=== PATIENT | female | born 1955 | race Caucasian/White ===

== ENCOUNTER 2016-10-26 10:00 | Day surgery (SDC) | payer OTHER ==
[~2016-10-26] VITALS: Ht 160 cm; Wt 67.0 kg
[~2016-10-26 10:00] MED LIST: 0.9% Sodium Chloride 1,000 ML IV SCH; MULT-666 PO; SELE200T11 PO; Sodium Chloride LOK Flush 10 mL Syringe IV PRN; fentaNYL-PF 50 mCg/mL 2 mL Inj IVPUSH PRN
[2016-10-26 11:10] VITALS: BP 130/71; PULSE 70; RESP 16; O2SAT 98
[2016-10-26 12:11] VITALS: BP 127/64; PULSE 83; RESP 16; O2SAT 97
--- NOTE | 2016-10-26 12:12 | PCM.ENDCOL ---
Colonoscopy Date of Service: Oct 26, 2016 Physician Juan C Gregory MD Pre Procedure Diagnosis: Screening blood in the stools Post Procedure Dx & Findings: Hemorrhoids Procedure Colonoscopy PROCEDURE IN DETAIL: Prep adequate Withdrawal time 21 minutes After unremarkable rectal examination the Olympus video colonoscope was inserted patient's anal canal and was advanced to cecum. Landmarks were identified including the ileocecal valve and appendiceal orifice. Scope was withdrawn systematically. Visualized colonic mucosa showed healthy shiny mucosa with normal healthy-appearing vasculature. In the rectum retroflexion was done which showed hemorrhoids. Anal canal was inspected carefully on the way out and hemorrhoids noted. Impression Hemorrhoids Recommendation Repeat colonoscopy in 10 years if there is no family or personal history of colon cancer or polyp. Otherwise repeat in 5 years. Presedation Assessment Risks and Benefits Informed consent was obtained from the patient after all risks and benefits including but not limited to drug reaction, infection, pain, bleeding, perforation, as well as alternatives were discussed. Patient monitoring Continuous pulse oximetry, cardiac monitoring, blood pressure monitoring, IV access, and oxygen at 2L per nasal cannula. Periprocedural Fentanyl: Fentanyl 150mcg Incrementally Midazolam: Midazolam 9mg Incrementally Complications There were no periprocedural complications identified. Post Procedure Plan Post Procedure Recommendations 1. Restrict activities today. 2. Resume normal activities in the morning. 3. Resume medications. 4. Patient informed of normal post procedure side effects as bloating, drowsiness, blood streaking in the stool. 5. average risk CRCS. If colon polyps come back as: -Hyperplastic- can repeat colonoscopy in 10 years -Tubular adenoma- repeat colonoscopy in 5 years -Tubulovillous/villous adenoma- repeat colonoscopy in 3 years -If any dysplasia- return to clinic as soon as possible 6. Please don't hesitate to call me with any questions. Juan C Gregory MD Oct 26, 2016 12:12
[2016-10-26 12:26] VITALS: BP 99/61; PULSE 84; RESP 14; O2SAT 97
== END 2016-10-26 23:59 | disposition home or self-care (01) ==
LOC: END 10:00
PROVIDERS: ATTEND Internal Medicine
DX: Z12.11 Encounter for screening for malignant neoplasm of colon (principal); K64.8 Other hemorrhoids; Z86.010 Personal history of colon polyps; K59.00 Constipation, unspecified
CPT/HCPCS: 99153; G0105; G0500; J7030

== ENCOUNTER 2016-11-21 05:39 | Inpatient (IN) | payer OTHER ==
[~2016-11-21] VITALS: Ht 160 cm; Wt 70.7 kg
[2016-11-21] VITALS (14 sets, daily range): BP systolic 102–139; BP diastolic 57–73; PULSE 82–98; RESP 13–18; O2SAT 94–99
[~2016-11-21 05:39] MED LIST changes: -0.9% Sodium Chloride 1,000 ML IV SCH; -Sodium Chloride LOK Flush 10 mL Syringe IV PRN; -fentaNYL-PF 50 mCg/mL 2 mL Inj IVPUSH PRN
[2016-11-21] MEDS: Lactated Ringer's 1,000 ML IV SCH ×2 (05:44→07:30)
[2016-11-21] MEDS ORDERED: [UNRECOGNIZED DRUG - OTHER] PO (05:55)
[2016-11-21] MEDS ORDERED: [UNRECOGNIZED DRUG - OTHER] PO (05:55)
[2016-11-21] MEDS ORDERED: ASPI325T32 PO (05:55)
[2016-11-21] MEDS ORDERED: CeFAZolin Inj 2 gm / 50mL D5W IV ONE (05:57)
[2016-11-21 06:24] LABS: BASOPHILS % (AUTO) 0.3 % (0-3); EOSINOPHILS % (AUTO) 3.2 % (0-5); MONOCYTES % (AUTO) 11.4 % (4-12); Mean Corpuscular Hemoglobin 26.4 pg (27.0-35.0); Mean Corpuscular Volume 78.9 fL (81-100); NEUTROPHILS % (AUTO) 45.5 % (40-74); Platelet Count 249 bil/L (150-400)
--- NOTE | 2016-11-21 07:18 | PCM.HPANE ---
Patient Data Surgeon Admitting Provider: Attending Provider:Sera Garcia MD Primary Care Physician:Dank Arteaga Other Provider:Shirley Stark Anesthesia Reason for Visit Pelvic Organ Prolapse Ht/WT & BMI Height (Feet): 5 Height (Inches): 3.00 Weight (Kilograms): 70.7 Body Mass Index 27.00 Allergies Coded Allergies: No Known Allergies (Verified Allergy, Severe, 10/26/16) Past Anesthesia History Anesthesia History: Denies:: Abnormal Airway, Anesthesia Reactions, Difficult Intubation, Fam Anesthesia Reaction, Fam Malignant Hypertherm, Malignant Hyperthermia Diabetes History Hx Diabetes?: No MRSA MRSA: No Medications Hypertension Medication: No Home Meds Incl Beta Steph: No Reported Medications [breathe extract] No Conflict Check Po Daily 11/21/16 [phytob-l 4x] No Conflict Check Po Daily 11/21/16 Aspirin 325 Mg Nuwnxt380 Mg PO PRN For Pain #1 BOTTLE 11/21/16 Selenomethionine (Selenium)200 Mcg Dophat016 Mcg PO DAILY 10/25/16 Multivitamin (Once Daily)1 Each Tablet1 Each PO DAILY 10/25/16 History History of ENT Problems?: Yes (see below) HEENT History: Positive for:: Hearing Problem (no hearing aides) Denies:: Abnormal Airway Cataracts Difficult Intubation Dysphagia Glaucoma Sinus Problem TMJ Denture Type: None Teeth Condition: Within Normal Limits Hx of Heart Problems?: No Cardiovascular History: Denies:: AICD Abdominal Aortic Aneurism Atrial Fibrillation Coronary Artery Disease Edema Heart Murmur Hypertension Irregular Heartbeat Pacemaker Valvular Heart Disease Hx of Respiratory Problem?: Yes Respiratory History: Positive for:: Cough (current; dry. Non-productive; no SOB; no wheezing) Pneumonia (remote hx ) Denies:: Asthma COPD Emphysema Oxygen Administration Tuberculosis (pos skin reaction due to vaccination in [place]) Use of C-PAP Machine Use of Inhalers / NEBS Hx Neurologic Problems?: No Neurological History: Denies:: CVA Headaches Multiple Sclerosis Parkinson's Disease Seizures TIA (possible 30 years ago- felt lump in head when angry, never dx) Hx of GI Problems?: No Hx of Problems?: Yes Genitourinary History: Denies:: Kidney Stones Urinary Tract Infection (past hx of - not current ) HX of Peritoneal Dialysis: No Female Hx: Denies:: Currently (post menopausal) Problems with Breasts? Skin History: Denies:: History Skin Disorders? Pressure Ulcers Hx Musculoskeletal Problems?: No Musculoskeletal History: Denies:: Fibromyalgia Joint Replacement Musculoskeletal Trauma Hx of Psycho/Social Problems?: No Psycho Social History: Denies:: Anxiety (situational never sought treatment) Hx Depression Hx Surgeries?: Yes (OVARY REMOVED, TONSILS) Hx Any Other Health Problems?: Yes Other History: Denies:: Cancer Thyroid Disease (hyperactive 6 mos ago, no meds now) History Blood Transfusions: Positive for:: Accept Blood Products? Blood Transfusions (after 1st child 40 years ago) Denies:: Blood Transfuse Reaction Hx Diabetes: No Hx Alcohol Use: NoHx Substance Use: No Smoking Status: Never Smoker Stop/Bang S-Snoring: Do You Snore Loudly: No T-Tired: feel tired, fatigued: Yes O-Obsered: Observed not breath: No P-Blood Pressure: treated: No B- Body Mass Index > 35 kg/m2: No A- Age over 50: Yes N- Neck Large Circumference: No G- Gender Male: No ISMA Total Score: 2 Risk Assessment Category Category 1A: Patient has history of documented sleep apnea, and HAS NOT received any narcotic, sedative or anesthesia administration during this stay. Category 1B: Patient has history of documented sleep apnea, and HAS received any narcotic , sedative or anesthesia administration during this stay Category 2: Patient has SUSPECTED Obstructive Sleep Apnea, and HAS received any narcotic , sedative or anesthesia administration during this stay. Category 3: Patient has SUSPECTED Obstructive Sleep Apnea and HAS NOT received narcotic, sedative or anesthesia administration during this stay. Category 4: Outpatient in Procedural Areas with known sleep apnea or who screen positive for High Risk via the STOP/BANG questionnaire. Exam Exam Vital Signs Vital Signs Date Time Temp Pulse Resp B/P Pulse Ox O2 Delivery O2 Flow Rate FiO2 11/21/16 06:15 36.9 82 18 139/73 96 Room Air General Appearance: Alert, Oriented X3 HEENT/AIRWAY: MP 2, Neck Movement (FROM) Lungs: Clear to Auscultation, Clear to Percussion Heart: Exam Unremarkable, Regular Rate/Rhythm Meds/Labs/Diagnostics Admission Meds Current Medications Lactated Ringer's (Lr) 1,000 ml @ 120 mls/hr Q8H20M IV Last administered on t 05:44; Start 11/21/16 at 05:00; Stop 11/21/16 at 13:19 Labs Test 11/21/16 06:00 White Blood Count 5.9th/mm3 (3.8-10.1) Red Blood Count 5.12mil/mm3 (3.90-5.20) Hemoglobin 13.5g/dL (12.0-15.6) Hematocrit 40.4% (35.0-46.0) Mean Corpuscular Volume 78.9fL (81-100) Mean Corpuscular Hemoglobin 26.4pg (27.0-35.0) Mean Corpuscular Hemoglobin Concent 33.4% (32.0-37.0) Red Cell Distribution Width 14.4% (12.3-15.4) Platelet Count 249bil/L (150-400) Neutrophils (%) (Auto) 45.5% (40-74) Lymphocytes (%) (Auto) 39.4% (14-46) Monocytes (%) (Auto) 11.4% (4-12) Eosinophils (%) (Auto) 3.2% (0-5) Basophils (%) (Auto) 0.3% (0-3) Plan Impression Patient chart reviewed, patient interviewed and anesthestic plan with risks, benefits, and alternatives discussed, and informed consent obtained. ASA Physical Status: ASA2 Mod Systemic Disease Anesthetic Plan: GA Bene/Risks/Altern/Consents: Yes HP Complete Prior to Induction: Yes Other Intrathecal Morphine administered per surgeon request for post-op pain control. Patient consented to intrathecal morphine injection after hearing r/b/a I discussed the r/b/a of proceeding in the setting of her dry cough. I discussed that it is reassuring that it is non-productive, and not associated with SOB or wheezing. Her lung exam was very unremarkable and was CTAB. I told her she is at slightly increased risk of a pulmonary complication related to the anesthesia and surgery but that the overall risk is still quite low. After this discussion the patient decided she would like to proceed. Ramses Mckenzie MD Nov 21, 2016 07:12
[2016-11-21] MEDS: CeFAZolin Inj 2 GM in IV Premix 1 EACH IV ONE ×2 (07:38→07:54)
[2016-11-21] MEDS ORDERED: Bupivacaine-MPF 0.5% W/EPI 30 mL Inj INFILTRATE ONE (08:12)
[2016-11-21] MEDS ORDERED: Labetalol 5 mg/mL 4 mL Inj IV PRN (08:30)
[2016-11-21] MEDS ORDERED: EPHEDrine Sulfate 50 mg/mL Inj IVPUSH PRN (08:30)
[2016-11-21] MEDS ORDERED: Phenylephrine 10,000 mCg/mL Inj IVPUSH PRN (08:30)
[2016-11-21] MEDS ORDERED: Lactated Ringer's 500 ML IV PRN (08:30)
[2016-11-21] MEDS ORDERED: HYDROmorphone 1 mg/mL Inj IVPUSH PRN (08:30)
[2016-11-21] MEDS ORDERED: Ondansetron 2 mg/mL 2 mL Inj IVPUSH PRN ×3 (08:30→13:20)
[2016-11-21] MEDS ORDERED: fentaNYL-PF 50 mCg/mL 2 mL Inj IVPUSH PRN (08:30)
[2016-11-21] MEDS ORDERED: MetoCLOpramide 5 mg/mL 2 mL Inj IVPUSH PRN (08:30)
[2016-11-21] MEDS ORDERED: Atropine 0.4 mg/mL Inj IVPUSH PRN (08:30)
[2016-11-21] MEDS ORDERED: Lactated Ringer's 1,000 ML IV SCH (08:30)
[2016-11-21] MEDS ORDERED: Propofol 10,000 mCg/mL 20 mL Inj ONE (11:02)
[2016-11-21] MEDS ORDERED: METHYLENE BLUE 0.5% ONE (11:02)
[2016-11-21] MEDS ORDERED: Rocuronium 10 mg/mL 5 mL Inj ONE (11:02)
[2016-11-21] MEDS ORDERED: Ondansetron 2 mg/mL 2 mL Inj ONE (11:02)
[2016-11-21] MEDS ORDERED: Dexamethasone 4 mg/mL Inj ONE (11:02)
[2016-11-21] MEDS ORDERED: fentaNYL-PF 50 mCg/mL 2 mL Inj ONE (11:02)
[2016-11-21] MEDS ORDERED: Morphine PF 1 mg/mL 10 mL Inj ONE (11:02)
[2016-11-21] MEDS ORDERED: Lactated Ringer's 1,000 ML IV ONE (12:42)
[2016-11-21] MEDS ORDERED: HYDROcodone-APAP 5-325 mg Tablet PO PRN (13:20)
[2016-11-21] MEDS ORDERED: oxyCODONE-Acetamin 5-325 mg Tablet PO PRN (13:20)
--- NOTE | 2016-11-21 13:39 | PCM.ANEP1 ---
Post Anesthesia Phase 1 PACU Phase 1 Assessment Vital Signs Vital Signs Date Time Temp Pulse Resp B/P Pulse Ox O2 Delivery O2 Flow Rate FiO2 11/21/16 13:35 94 14 112/65 95 Room Air 11/21/16 13:25 95 14 116/67 95 Room Air 11/21/16 13:15 36.6 84 13 112/60 94 Room Air 11/21/16 13:05 83 15 116/64 94 Room Air 11/21/16 13:00 88 15 113/68 95 Room Air 11/21/16 12:55 85 16 115/63 98 Room Air 11/21/16 12:50 18 99 11/21/16 12:50 85 16 113/62 96 Simple Mask 8 11/21/16 12:45 36.6 87 16 118/71 98 Simple Mask 8 11/21/16 06:15 36.9 82 18 139/73 96 Room Air Anesthetic Administered: GA Level of Alertness: Awake, talking GUERRERO's with Equal Strength: Yes Pain: No Nausea or Vomiting: No Oxygen Delivery: Simple Mask Lungs: Clear to Auscultation, Clear to Percussion Dermatome Level: Full Sensation Ramses Mckenzie MD Nov 21, 2016 13:39
--- NOTE | 2016-11-21 23:46 | OP ---
[address] [address] OPERATIVE REPORT PATIENT: MANNIE VIRK : 1955 MR#: [id number] ADMIT: 11/21/2016 JOB ID: [id number] DATE OF SURGERY: 11/21/2016 PROCEDURE: Cystoscopy with right-sided and also left-sided ureteral cannulization, ureteral catheter placement. SURGEON: Rupa Warner MD. ANESTHESIA: General. PREOPERATIVE DIAGNOSIS(ES): This was an intraop consult, concern for ureteral obstruction by primary team. POSTOPERATIVE DIAGNOSIS(ES): INDICATIONS: The patient is a 61-year-old woman who I was asked to see under anesthesia for evaluation of ureteral patency. The patient was status post vaginal hysterectomy with inadvertent cystotomy which was closed by the primary team. Also perforation of bladder with the trocar at the time of planned sling placement. Trocar removed. With the Gynecology service unable to or unsatisfied with locating the ureteral orifices and seeing efflux from them during the course of the case. Urology was asked for an intraoperative assessment of ureteral patency. PROCEDURE IN DETAIL: At time of arrival patient was already under anesthesia. Her vaginal hysterectomy was completed, as was her attempted sling placement. She was in the lithotomy position. A rigid 22.5 scope was introduced into the patient's bladder, which was surveyed. There were postoperative expected changes including some bunching of tissue from her anterior repair and repair of the cystotomy which had been accomplished laparoscopically per the primary team. A 70 degree lens was used as well to examine the bladder. There was no active bleeding. The left ureteral orifice was identified first, switched back to the 30 degree lens. We were able to get an angled Glidewire into the ureteral orifice and a 6-New Zealander open-ended catheter slid up without any obstruction higher up to the kidney. We then injected some sterile saline. Removed the catheter and were able to see good efflux from this ureter. The feeling that this was indeed patent as the catheter slid up well and the 20 cc of saline effluxed evidently without difficulty. We then turned our attention to the right ureteral orifice, which was a little bit more difficult to identify, however, this was able also to be cannulated with an angled Glidewire. We could also likewise get a 6-[place] Zealander open-ended ureteral catheter up over it. There was no palpable obstruction throughout the area of interest. Once again, we injected some saline and were able to see this efflux. We did discuss absent Lasix renal scan there is no definitive assessment of lack of obstruction, but the affected areas where the sutures were placed were all medial to both ureteral orifices and medial to both courses of the ureter which was identifiable with the ureteral catheters which had been placed. These were removed both in the procedure, as were the guidewires, and this terminated the urology portion of the surgery which consisted of right-sided and also left-sided ureteral cannulization of catheter placement.
[2016-11-22 04:00] VITALS: BP 104/61; RESP 18
--- NOTE | 2016-11-22 06:22 | NUR ---
Shift note: VSS. Pt stood at bedside w/o difficulties and minimal dizziness, able to walk to the sink and brush her teeth. Lupis care done and pad changed with very little drainage. Catheter draining blue liquid and pt is taking po w/o any problems. Rates her pain at a 1 and at this time refused any more Toradol states that it's not that uncomfortable.
[2016-11-22 07:45] VITALS: BP 122/56; PULSE 93; RESP 16
[2016-11-22] MEDS ORDERED: IBUP-1827 PO (08:01)
[2016-11-22] MEDS ORDERED: CIPR-231 PO (08:01)
[2016-11-22] MEDS ORDERED: OXYC1TAB24 PO (08:01)
--- NOTE | 2016-11-22 08:12 | PCM.DIGYN ---
Crystal Lenz 11/22/16 0812: Surgical Discharge Instruction Dates of Hospitalization Date of Hospital Admission Nov 21, 2016 at 14:02 Providers Admitting Physician: Sera Garcia MD Primary Care Physician: Dank Arteaga Attending Physician: Sera Garcia MD Diet Discharge Diet: No restrictions Activity Discharge Activity-General: Balance rest and activity, No lifting >15 pounds for 2 weeks, No lifting >10 pounds for 4-6 weeks, No driving while taking narcotic, Other (Pelvic rest for 6 weeks (nothing per vagina including intercourse, tampons)) Dressing and Incisional Care Hygiene: May shower, DO NOT soak incision under water, NO bathtub, hot tub or whirlpool Additional Instructions Discharge Instructions Continue antibiotics for 2 weeks. Take ciprofloxacin 500 mg, 1 tablet by mouth every 12 hours. While taking antibiotics, you should also take probiotics to help prevent diarrhea. Probiotics are available [id number] or they are in foods like yogurt, sauerkraut, or pickled vegetables. Keep the Blackman catheter in place until seen by urology. Do not take more pain medication (Percocet) than is necessary -- less is better. Percocet pills have Tylenol (acetaminophen) in them at 325mg per pill. Do not take Tylenol in addition to your pain medication but should take one or the other. Do not take while driving or working. Be sure to follow up in 2 weeks at [facility]. Follow up in 10 days with urology. You will be called by our office about your appointment date and time. Pelvic rest for 6 weeks (nothing per vagina including intercourse, tampons) If you have a fever greater than 100.4, please call [facility]. There is always someone burial needs salesperson to talk to. If you have an increase in bleeding, call [facility]. If you have a lot of bleeding suddenly, especially if you have symptoms of dizziness & weakness with it, get emergency help. You have been sent home with the following prescriptions: - Ciprofloxacin 500 mg, take 1 tab every 12 hours for 2 weeks. - Percocet 5/325 mg, take 1 tab every 4-6 hours as needed for pain. - Ibuprofen 600mg take 1 tab every 6 hours as needed for pain. Take with a meal. Follow-up in 2 with [facility] and in 10 days with urology. You will receive a phone call about your appointment with urology. Follow Up Plan Follow-up Provider (F9): Sera Garcia MD Follow-up appointment: Weeks (2) Call your provider for: Fever, Chills, Shortness of breath, Vomitting, Drainage at incision, Heavy vaginal bleeding, Wound redness, Increasing pain, Other (not producing urine) Sera Garcia MD 11/28/16 0845: Surgical Discharge Instruction Attending Statement I saw and examined patient. I agree with above evaluation and plan. This is POD1 after TVH, AP repair, TVT, procedure was complicated by bladder injury and repaired during procedure. Patient doing well this morning. No abdominal pain. No n/v. ambulating well. She had adequate urine output overnight. Her urine appeared to be clear this morning. Patient will be discharged home today. She will keep blackman for 10 days with prophylactic antibiotics. I will schedule her follow up with urologist Dr Zavala 10 days after procedure. She will follow up with me 2 weeks after procedure. Crystal Lenz DO Nov 22, 2016 08:12 Sera Garcia MD November 28, 2016 08:45
--- NOTE | 2016-11-23 13:19 | PATH ---
SURGICAL PATHOLOGY Attending Physician:Sera Garcia MD CASE STATUS: Signed Out PATIENT NAME: MANNIE VIRK PID: [id number] : 1955 DATE COLLECTED:11/21/2016 22:42 SPECIMEN: Uterus +/- tubes/ovaries, except neoplastic, prolapse CLINICAL HISTORY: PELVIC ORGAN PROLAPSE, URINARY STRESS INCONTINENCE 1). UTERUS FINAL DIAGNOSIS: 1.UTERUS (40 GRAMS): HYSTERECTOMY, WITH NO PATHOLOGIC ALTERATIONS. (CLINICAL DIAGNOSIS PROLAPSE). NEGATIVE FOR DYSPLASIA AND NEOPLASIA. ICD10 CODE N81.4 GROSS DESCRIPTION: The specimen is received in formalin, labeled with the patient's name, sublabeled as uterus, and consists of a uterus (40.4 g, 3.1 cm AP, 6.5 cm SI, 3.7 cm ML). The ovaries and fallopian tubes are absent. The cervix (2.0 cm AP, 2.5 cm ML) has a vaginal cuff (up to 1.4 cm in depth), transverse os and patent endocervical canal. The endometrium (average thickness-0.1 cm) is orellana-pink smooth and flat. The myometrium (thickness-1.4 cm) is orellana and unremarkable. The serosa is orellana smooth and shiny. Section code: (A) anterior cervix; (B) posterior cervix; (C, D) anterior endomyometrium; (E, F) posterior endomyometrium. 11/22/16 JM MICRO DESCRIPTION: See diagnosis. ICD-9 CODES: CPT CODES: 00213 Electronically Signed Out Beryl Vasquez MD [facility] Pathology [facility] [address], [place] [address] Technical component performed at [facility], [facility] [address], [place], [address]
--- NOTE | 2016-11-24 06:56 | PCM.DC.SUR ---
Discharge Summary Date of Service: Nov 24, 2016 Date of Hospital Admission: Nov 21, 2016 at 14:02 Date of Operation(s): 11/21/2016 Date of Discharge: 11/22/2016 Diagnosis at Time of Discharge 1. Pelvic organ prolapse 2. Urinary stress incontinence 3. Status post total vaginal hysterectomy with anterior and posterior repair, TVT sling and cystoscopy with right-sided and also left-sided ureteral cannulization, ureteral catheter placement Problems: Operation Status post total vaginal hysterectomy with anterior and posterior repair, TVT sling and cystoscopy with right-sided and also left-sided ureteral cannulization , ureteral catheter placement Brief History and Physical: From the history and physical performed on 11/13/16: 60 yo female, stage 3 cystocele, stage 2 uterine prolapse, and stage 1-2 rectocele. Also complicated with stress incontinence. She has chronic constipation. Planned for surgical management . She tried pessary and doesn't like it. She had history of right salpingooorectomy . VDx2 declined PMH. Consultants: Dr. Warner, urology Hospital Course: 1. Pelvic organ prolapse 2. Urinary stress incontinence 3. Status post total vaginal hysterectomy with anterior and posterior repair, TVT sling and cystoscopy with right-sided and also left-sided ureteral cannulization, ureteral catheter placement -Patient sustained an injury to her bladder during vaginal hysterectomy that was repaired and a second injury to the bladder during TVT sling placement for which urology was consulted intraoperatively. Urology performed a cystoscopy with bilateral ureteral cannulization and ureteral catheter placement. -Patient was discharged on post-operative day 1. She had a Blackman catheter in place with urine output. Her pain was well controlled. She did not have discomfort with the Foely catheter. She was passing gas and had a good appetite. She did not have nausea or vomiting. Her vital signs were stable. On exam, her lungs were clear to auscultation, heart was a regular rate and rhythm , and abdomen was soft, non-tender, and non-distended on exam. -She was discharged to home with the Blackman catheter in place with a leg bag. She was also discharged on antibiotics for a 2 week course. Pathology: DATE COLLECTED:11/21/2016 22:42 SPECIMEN: Uterus +/- tubes/ovaries, except neoplastic, prolapse CLINICAL HISTORY: PELVIC ORGAN PROLAPSE, URINARY STRESS INCONTINENCE 1). UTERUS FINAL DIAGNOSIS: 1.UTERUS (40 GRAMS): HYSTERECTOMY, WITH NO PATHOLOGIC ALTERATIONS. (CLINICAL DIAGNOSIS PROLAPSE). NEGATIVE FOR DYSPLASIA AND NEOPLASIA. Electronically Signed Out Beryl Vasquez MD [facility] Pathology [facility] [address], [place] [address] Follow-up Plan: Continue antibiotics for 2 weeks. Take ciprofloxacin 500 mg, 1 tablet by mouth every 12 hours. While taking antibiotics, you should also take probiotics to help prevent diarrhea. Probiotics are available [id number] or they are in foods like yogurt, sauerkraut, or pickled vegetables. Keep the Blackman catheter in place until seen by urology. Do not take more pain medication (Percocet) than is necessary -- less is better. Percocet pills have Tylenol (acetaminophen) in them at 325mg per pill. Do not take Tylenol in addition to your pain medication but should take one or the other. Do not take while driving or working. Be sure to follow up in 2 weeks at [facility]. Follow up in 10 days with urology. You will be called by our office about your appointment date and time. Pelvic rest for 6 weeks (nothing per vagina including intercourse, tampons) If you have a fever greater than 100.4, please call [facility]. There is always someone cost reduction engineer to talk to. If you have an increase in bleeding, call [facility]. If you have a lot of bleeding suddenly, especially if you have symptoms of dizziness & weakness with it, get emergency help. You have been sent home with the following prescriptions: - Ciprofloxacin 500 mg, take 1 tab every 12 hours for 2 weeks. - Percocet 5/325 mg, take 1 tab every 4-6 hours as needed for pain. - Ibuprofen 600mg take 1 tab every 6 hours as needed for pain. Take with a meal. Follow-up in 2 with [facility] and in 10 days with urology. You will receive a phone call about your appointment with urology. ([phytob-l 4x]) PO DAILY (Reported) ([breathe extract]) PO DAILY (Reported) Aspirin (Aspirin) 325 Mg Tablet 325 MG PO PRN For Pain (Reported) Ciprofloxacin (Cipro) 500 Mg Tablet 500 MG PO BID Ibuprofen (Ibuprofen) 600 Mg Tablet 600 MG PO QID PRN PRN For Pain Multivitamin (Once Daily) 1 Each Tablet 1 EACH PO DAILY (Reported) Selenomethionine (Selenium) 200 Mcg Tablet 200 MCG PO DAILY (Reported) oxyCODONE-Acetaminophen 5-325 mg (oxyCODONE-Acetaminophen 5-325 mg) 1 Each Tablet 1 TAB PO Q6H PRN PRN For Pain Attending Statement: I saw patient and examined her. I agree with above plan. She will go home with blackman and antibiotics for 10 days. Follow up with urologist Magdiel Ferrara in 10 days. She will follwo up with me in 2 weeks. copies to: Rupa Warner MD; Sera Garcia MD; Sera Garcia MD; Dank Arteaga Marissa L DO Nov 24, 2016 06:56 Sera Garcia MD November 28, 2016 08:47
--- NOTE | 2016-11-27 09:33 | OP ---
[address] [address] OPERATIVE REPORT PATIENT: MANNIE VIRK : 1955 MR#: [id number] ADMIT: 11/21/2016 JOB ID: [id number] DATE OF SURGERY: 11/21/2016 SURGEON: Sera Garcia MD DIE FORGER: Kaylan Castanon MD PREOPERATIVE DIAGNOSIS(ES): A 61-year-old female, postmenopausal pelvic organ prolapse and stress incontinence. POSTOPERATIVE DIAGNOSIS(ES): A 61-year-old female, postmenopausal pelvic organ prolapse and stress incontinence. INDICATION FOR PROCEDURE: A 61-year-old female, postmenopausal pelvic organ prolapse and stress incontinence. This is a 61-year-old female, postmenopausal, complaining of prolapse of pelvic organ. During office examination, it was noted she has stage 3 cystocele, stage 2 uterine prolapse, and stage 1-2 rectocele. She also was diagnosed stress incontinence. After discussion, the plan was made to have a vaginal hysterectomy, AP repair and sling placement. Discussed with the patient about the benefits, risks, and alternatives of the procedure. The patient understood there is risk of infection, bleeding, injury to the organs around including the urethra, bladder, ureters, major vessels, nerves and bowels. Informed consent signed. The patient also understood there is risk of recurrence of prolapse after the procedure. The patient agreed for a possible blood transfusion if there is heavy bleeding during the procedure. The patient agreed to involve other specialists for further procedure if injury occurred. DESCRIPTION OF PROCEDURE: The patient was transferred to the operating room. After general anesthesia was noted to be adequate, she was placed in dorsal lithotomy position. She was prepared and draped as normal sterile fashion. A Lambert catheter was inserted to the bladder. Bimanual examination was performed. It was noticed again there was stage 3 cystocele, stage 2 uterine prolapse, stage 2 rectocele. A weighted speculum was inserted into the vagina. The cervix was grasped with single toothed tenaculum. The cervix was then injected circumferentially with 0.5% lidocaine with epinephrine, about 10 cc. The cervix was then circumferentially incised with a scalpel, and the bladder was gradually dissected off the pubovesical cervical fascia anteriorly with sponge and Metzenbaum scissors. During this process, there was noticed an injury to the bladder. This injury was about 2-3 cm, and this was noticed not involving the ureter. A 2- layer closure was performed with 3-0 Vicryl sutures and, after placing of the suture, 200 cc of normal saline was used to filled bladder to confirm a tight closure of the injury. Then, the normal saline fluid was released from the bladder. At this time, the attention was transferred to the posterior loose areolar plane. It was identified by dissecting through the mucosa using the Metzenbaum scissors, and also blunt dissection with sponge into the peritoneum was visible. Then, the posterior cul-de-sac was entered sharply. Then, the weighted speculum was inserted to the colin de sac. At this time, the Joyce clamp was placed over the uterine sacral ligament on the right side of the patient. The uterine sacral ligament was transected by Burrell scissors, suture ligated using 0-Vicryl. The same procedure was performed on the left side, and the suture was held with hemostats. At this time, the anterior peritoneum was examined and further dissection was performed on the anterior aspect, and the peritoneum was identified and entered. Speculum inserted to the anterior peritoneum space. At this time, the right cardinal ligament and broad ligament was clamped, cut and suture ligated in steps. The same procedure was performed on the left side gradually. Then, the uterus was completely removed. Hemostasis was confirmed. At this time, the left adnexa was examined. Her left ovary was able to be palpated. Atrophic size. No abnormal finding, but it is very difficult to expose and could not be visualized. Her right ovary was surgically absent. Discussed with the patient before the procedure that if there is difficulty removing the ovary, this oophorectomy would not be done. At this time, decision was made not to perform the oophorectomy. At this time, all the pedicles were examined, with good hemostasis. At this time, modified Allan procedure was performed to enhance the pelvic floor using 0 Vicryl. Then, the peritoneum was closed together with the vaginal cuff with 0 Vicryl suture with a running fashion. After the closure, good hemostasis was confirmed. At this time, the attention was transferred to the posterior vaginal wall, and about 5 cc of 0.5% lidocaine with epinephrine was injected submucosally for hydrodissection and maintenance of hemostasis. A vertical incision was made through the perineal skin and vaginal mucosa. The skin was dissected away from the perineal body. The vaginal epithelium was opened in the midline, extending the incision superior to the level of the defect. The posterior vaginal mucosa was then dissected off the fibromusculars from sidewall to sidewall. The posterior vaginal wall was ligated in the midline with interrupted transversely placed lateral sutures, incorporating a generous purchase of the fibromusculars beginning proximally and progressing toward the hymen ring. After this, the extra vaginal epithelium was trimmed and then was reapproximated using 2-0 Vicryl with running on locked fashion. Then, a perineoplasty was performed by enhancing the perineum body with 0-Vicryl sutures and the skin incision was repaired with continuous fashion subcutaneously. At this time, about 5 cc of 0.5% lidocaine with epinephrine was injected submucosally to aid in dissection and maintenance of hemostasis. A scalpel was used to make a vertical incision along the midline. The edges of the incision were grasped and retracted using Allis clamps. The vaginal epithelium was then dissected off the underlying vaginal muscularis using Metzenbaum scissors until the entire extent of the anterior vaginal prolapse was dissected down to the underlying layer of connective tissue. The whole length is from about 2 cm above the urethra and 1 cm below the closure of the hysterectomy. Then, the anterior vaginal prolapse repaired with 0 Vicryl via interrupted suture in the vaginal muscularis, tied in the midline without tension. Then, the vaginal epithelium was trimmed and approximated using 2-0 Vicryl continuously with a locked fashion. At this time, the attention was moved to the next procedure of the TVT sling placement. A vertical incision was made in the vaginal mucosa under the mid urethra starting approximately 1.5 cm from the urethral meatus and continuing proximally towards the cervix. The Metzenbaum scissors was used to dissect the vaginal mucosa of the underlying pubocervical fascia, extending approximately 1 cm laterally. A 5 mm incision then was made at the superior margin of the pubic bone 2.5 cm lateral to midline. The risk of injury to the urethra and bladder neck were minimized by placing the rigid guide inside the Lambert catheter to position the urethra and the bladder neck at 90 degree angle to the path of the incision of needle. The 1st needle with tape attached was then inserted through the suburethral incision into the right tunnel starting at the end of the inferior margin of the pubic symphysis immediately upwards through the vaginal pubic space in close contact with the posterior surface of the pubic bone. The needle was advanced into the penetrated suprapubic incision on the patient's right side. This was repeated on the left side of the patient. Then, a colposcopy was performed, and it was noted the procedure on the patient's left side perforated of the bladder. Then, it was removed and replaced. Cystoscopy was performed again. It was noticed no injury at this time. At this time, both ends of the tape were cut from the medial attachment and the cut ends were grasped using Anette clamps. The tape was gently pulled into position with a 10 mm dilator placed under the urethra to help insure tension-free placement. The plastic sheath was then removed, with the tape in satisfactory position. Each end of the tape was then cut just below the skin level by depressing the skin around the suprapubic incision while holding the tape. Finally, the skin incision was closed with Dermabond. The vaginal mucosa was then reapproximated using 2-0 Vicryl continuously in a locked fashion. There was minimal bleeding, and this stopped with pressure. At this time, sponge with Estrace cream was placed in the vagina for packing. At this time, the cystoscopy was re-performed to have a Lambert evaluation of the bladder. Both ureter position was not very well recognized and the evaluation was limited, and could not see urine spilling from the ureters. Urologist, Dr. Warner, was called in for further evaluation. She performed a cystoscopy and she placed a stent. With removing of the stent, urine was seen from both ureters. There was no active bleeding or defect that was noticed in the bladder. The patient tolerated the whole procedure well. The EBL during the procedure was about 200 cc. The patient was transferred to the recovery room in a stable condition. For this procedure, an [employer] as an certified registered dental assistant is necessary for exposure and the completion of the procedure. CHRISTINA
== END 2016-11-22 11:03 | disposition home or self-care (01) | DRG 742 ==
LOC: SAS 05:39 → FBC 14:02
PROVIDERS: ADMIT Obstetrics & Gynecology; ATTEND Obstetrics & Gynecology
PROC: 0TSD4ZZ Reposition Urethra, Percutaneous Endoscopic Approach (ICD-10-PCS; 2016-11-21)
PROC: 0UT9FZZ Resection of Uterus, Via Natural or Artificial Opening With Percutaneous Endoscopic Assistance (ICD-10-PCS; principal; 2016-11-21 07:30)
PROC: 0UTC7ZZ Resection of Cervix, Via Natural or Artificial Opening (ICD-10-PCS; 2016-11-21 07:30)
DX: N81.2 Incomplete uterovaginal prolapse (principal); N99.71 Accidental puncture and laceration of a genitourinary system organ or structure during a genitourinary system procedure; N81.6 Rectocele; N39.3 Stress incontinence (female) (male)